=== PATIENT | male | born 1960 | race Hispanic/Latino ===

== ENCOUNTER 2021-10-16 11:20 | Emergency (ER) | payer SELFPAY ==
[2021-10-16] MEDS ORDERED: Ketorolac Tromethamine 30 MG/ML VIAL ONE (12:16)
[2021-10-16] MEDS ORDERED: Acetaminophen 500 MG TAB ONE ×2 (12:16→12:18)
== END 2021-10-16 13:00 | disposition home or self-care (01) ==
LOC: ERS 11:20
DX: R51.9 Headache, unspecified (principal); I10 Essential (primary) hypertension; E78.00 Pure hypercholesterolemia, unspecified; F17.210 Nicotine dependence, cigarettes, uncomplicated; Z79.899 Other long term (current) drug therapy
CPT/HCPCS: 70450; 96372; J1885